=== PATIENT | female | born 1940 | race Caucasian/White ===

== ENCOUNTER 2019-10-11 10:50 | Inpatient (IN) ==
[2019-10-11 12:07] LABS: BASO# 0.03 X1000 (0.0-0.2); BASO% 0.4 % (0.0-0.8); HEMOGLOBIN 13.6 g/dL (12.0-16.0); IMM GRAN# 0.05 X1000 (0.0-0.04); IMM GRAN% 0.6 % (0.0-0.5); LYMPH# 1.05 X1000 (1.2-3.4); LYMPH% 13.2 % (20.5-51.1); MCH 30.9 PG (27-31); MCV 90.9 FL (81-99); MONO# 0.41 X1000 (0.11-0.59); MONO% 5.1 % (1.7-9.3); MPV 9.3 FL (7.4-10.4); NEUT# 6.44 X1000 (1.4-6.5); NEUT% 80.7 % (42.2-75.2); PLT 327 X1000 (130-400); RDW 12.9 % (11.5-14.5); WBC 7.98 X1000 (4.8-10.8)
[2019-10-11 12:09] LABS: ALLEN TEST NO; BE 4.3 mmoll (-3.0-3.0); BLOOD TYPE ARTERIAL; HCO3-(ACT) 28.1 mmoll (20.0-26.0); METHB 1.7 % (0.0-1.5); O2(CT) 17.4 mL/dL (15.0-23.0); O2HB 91.8 % (95.0-99.0); PCO2(98.6) 34 mmHg (35-45); PO2(98.6) 64 mmHg (60-100); SAMPLE BLOOD; SAO2 95.2 % (95.0-100.0); THB 13.5 g/dL (11.5-17.4); pH(98.6) 7.51 (7.35-7.45)
[2019-10-11 12:10] LABS: MODALITY ROOM AIR
[2019-10-11 12:31] LABS: AGAP 14; ALB/GLOB RATIO 1.5; ALBUMIN 4.1 g/dL (3.5-5.0); ALKALINE PHOSPHATASE 61 U/L (32-104); BUN 11 mg/dL (8-22); CALCIUM 9.2 mg/dL (8.8-10.2); CHLORIDE 90 mmol/L (98-107); COSMO 262; CREATININE 0.9 mg/dL (0.5-0.9); ESTIMATED GFR > 60; GLUCOSE 103 mg/dL (70-104); GOT 14 U/L (10-30); GPT 14 U/L (10-36); POTASSIUM 3.5 mmol/L (3.5-5.1); SODIUM 131 mmol/L (136-145); TCO2 27 mmol/L (25-35); TOTAL BILIRUBIN 0.56 mg/dL (0.20-1.00); TOTAL PROTEIN 6.9 g/dL (6.3-8.3)
[2019-10-11 13:00] LABS: BILIRUBIN URINE NEGATIVE (NEGATIVE); BLOOD URINE SMALL (NEGATIVE); COLOR YELLOW; GLUCOSE URINE NEGATIVE (NEGATIVE); KETONE URINE TRACE mg/dL (NEGATIVE); LEUKOCYTES URINE LARGE (NEGATIVE); NITRITE URINE POSITIVE (NEGATIVE); PH URINE 5.5; PROTEIN URINE NEGATIVE (NEGATIVE); SP GRAVITY URINE 1.013; TURBIDITY URINE HAZY (CLEAR); URINE SOURCE CATH; UROBILINOGEN URINE NORMAL (NORMAL)
[2019-10-11 13:02] LABS: UR EPITHELIAL CELLS <10 /HPF (<10); URINE BACTERIA 4+ /HPF; URINE RBC <10 /HPF (<10); URINE WBC TNTC /HPF (<10)
--- NOTE | 2019-10-11 13:07 | Diag Imaging Result Doc PS360 ---
CHEST-PORTABLE - 10/11/2019 INDICATION: WEAK COMPARISON: 12/24/2017 FINDINGS: Stable trace pulmonary fibrosis in the lung bases. No new infiltrates. Heart size and pulmonary vascularity is normal. No pneumothorax or pleural effusion. IMPRESSION: No change from prior. Electronically signed by Bello Suggs 10/11/2019 1:05 PM
[2019-10-11] MEDS ORDERED: ROCEPHIN 1 GM in NS 50 ML IV ONE (13:25)
--- NOTE | 2019-10-11 14:00 | EKG Report ---
Test Performed on : 10/11/2019 11:12:53 AM Test Reason : WEAK Blood Pressure : / mmHG Vent. Rate : 068 BPM Atrial Rate : 068 BPM P-R Int : 150 ms QRS Dur : 100 ms QT Int : 400 ms P-R-T Axes : 049 051 012 degrees QTc Int : 425 ms Normal sinus rhythm. Possible Left atrial enlargement Low voltage QRS Cannot rule out Anterior infarct , age undetermined Abnormal ECG When compared with ECG of 24-DEC-2017 09:04, Minimal criteria for Anterior infarct are now present Unconfirmed Result
--- NOTE | 2019-10-11 15:55 | PROVIDER DOCUMENTATION ---
This chart was entered by Krys Roberson Scribe, acting as scribe for Indio Carlson MD. HPI-General Adult - General Chief Complaint: Weakness Stated Complaint: ABDOMINAL PAIN/VOMITING Time Seen by Provider: 10/11/19 11:06 Source: patient Allergies/Adverse Reactions: Patient Allergies Allergy/AdvReac Type Severity Reaction Status Date / Time levofloxacin [From Levaquin] Allergy RASH Verified 12/24/17 09:38 lactose AdvReac DIARRHEA Verified 12/24/17 09:38 metoclopramide [From Reglan] AdvReac Unknown Verified 12/24/17 09:38 Home Medications: Home Medication List Medication Instructions Recorded Confirmed Last Taken Type Esomeprazole [Nexium] 40 mg PO DAILY 10/12/15 10/11/19 12/23/17 History Amlodipine [Norvasc] 2.5 mg PO DAILY 11/13/15 10/11/19 12/24/17 08:30 History Primidone 100 mg PO DAILY 11/12/17 10/11/19 12/23/17 History Carbidopa/Levodopa E.r [Sinemet Cr 1 tab PO HS 10/11/19 10/11/19 Unknown History ] Hydrochlorothiazide 25 mg PO QAM 10/11/19 10/11/19 Unknown History - History of Present Illness -Gen Adult Nature of Presenting Problems: pt is a 78 yowf c/o weakness, vomiting x1, dry cough, chills and episode of incontinence starting 1999 last night. pt is having trouble ambulating but usually does not needs assistance. pt on o2 in room, not usually on o2, but does use cpap at night. pt has hx of parkinsons, htn. no dm or cardiac hx. denies sob, body aches, fever. pt pcp is Dr. Montoya. Onset/Duration: reports: last night Timing: reports: still present Context/Activities at Onset: reports: none Modifying Factors: improves with: nothing Associated Symptoms: reports: cough (dry), fever/chills (chills, no fever), genitourinary problems (incontinence), vomiting (x1), weakness, trouble walking. denies: muscle aches, shortness of breath Review of Systems - Adult - REVIEW OF SYSTEMS - ADULT Constitutional: reports: see HPI, chills. denies: fever, fatique, night sweats Eyes: reports: no symptoms reported Ears, Nose, Mouth & Throat: reports: no symptoms reported Cardiovascular: reports: no symptoms reported Respiratory: reports: see HPI, cough. denies: dyspnea on exertion, excessive sputum production, hemoptysis, shortness of breath Gastrointestinal: reports: see HPI, vomiting. denies: abdominal pain, diarrhea, nausea Genitourinary: reports: see HPI, incontinence. denies: dysuria, discharge, frequency Musculoskeletal: reports: see HPI, muscle weakness. denies: back pain, joint pain, muscle aches Integumentary: reports: no symptoms reported Neurological: reports: no symptoms reported Psychiatric: reports: no symptoms reported Endocrine: reports: no symptoms reported Hematologic/Lymphatic: reports: no symptoms reported Allergic/Immunologic: reports: no symptoms reported All Other Systems: Reviewed and Negative Past History - Adult - PAST MEDICAL HISTORY-ADULT Review of Records: reports: Nursing Assessment Review, Medications Reviewed, Social history reviewed & non-contributory. Major Childhood Illnesses: reports: denies history Cardiovascular: reports: HTN Respiratory: reports: sleep apnea Gastrointestinal: reports: GERD Obstetrical/Gynecological: reports: denies history Genitourinary: reports: denies history Musculoskeletal: reports: chronic pain (back) Neurological: reports: denies history Endocrine/Immune: reports: denies history Other Conditions: reports: denies history - PRIOR SURGERIES/PROCEDURES Surgical/Procedure History: reports: cholecystectomy, hysterectomy, joint replacement (hip/knee), other - IMMUNIZATION STATUS Childhood Immunizations: See Nurse Assessment Flu Vaccine: See Nurse Assessment - FAMILY HISTORY Family History: reviewed, not pertinent - SOCIAL HISTORY Smoking: other (former smoker) Substance Use: alcohol Alcohol Use Frequency: every day (wine) Number of drinks per typical drinking period:: 2 drinks (2-3 glasses/day) Physical Exam-General - PHYSICAL EXAM-ADULT Initial Vital Signs Reviewed: Yes - CONSTITUTIONAL General Appearance: alert, no apparent distress, other (smells of urine in room) . negative: cachetic, lethargic, slow to respond - EYES Eyes: PERRL/EOMI - HEAD, EARS, NOSE, MOUTH & THROAT HENMT: normocephalic/atraumatic, moist mucous membranes - NECK Neck: non-tender, full range of motion, supple, normal inspection - RESPIRATORY Respiratory: chest non-tender, lungs clear, normal breath sounds - CARDIOVASCULAR Cardiovascular: normal peripheral pulses, regular rate, rhythm - GASTROINTESTINAL (ABDOMEN) Abdominal Exam: normal bowel sounds, non tender, soft. negative: rigid, rebound, tenderness - MUSCULOSKELETAL Back Exam: normal inspection Extremity: normal range of motion, non-tender, normal inspection - SKIN Integumentary: normal color, normal turgor, warm/dry - NEUROLOGIC Neurologic: waiter/waitress buffet II-XII nml as tested, grossly normal, no motor/sensory deficits - PSYCHIATRIC Psych/Mental Status: normal mood/affect, normal thought content, normal thought process, oriented x 3 Progress - PLAN OF CARE/RESULTS Progress/Plan/Lab Results: Vital Signs - 8 hr 10/11/19 10:59 Temperature 98.6 F Pulse Rate 71 Respiratory Rate 17 Blood Pressure 128/47 O2 Sat by Pulse Oximetry 97 Orders Category Date Time Status Cardiac Monitoring DIRECTED Care 10/11/19 11:06 Active Saline Loc NOW Care 10/11/19 11:06 Active CHEST-PORTABLE [RAD] Stat Exams 10/11/19 11:07 Ordered ABG [RESP] Routine Lab 10/11/19 11:06 Ordered BLOOD CULTURE [BLDCUL] Stat Lab 10/11/19 11:06 Ordered CBC WITH ELECTRONIC DIFF [HEME] Stat Lab 10/11/19 11:06 Uncollected COMPREHENSIVE METABOLIC PANEL [CHEM] Stat Lab 10/11/19 11:06 Ordered INFLUENZA SCREEN A/B Stat Lab 10/11/19 11:06 Uncollected LACTATE, PLASMA [CHEM] Stat Lab 10/11/19 11:07 Uncollected MAGNESIUM [CHEM] Stat Lab 10/11/19 11:07 Ordered PRO B-NATRIURETIC PEPTIDE Stat Lab 10/11/19 11:07 Uncollected TROPONIN T HIGH SENSITIVITY Stat Lab 10/11/19 11:07 Uncollected URINALYSIS W/POSS RFLX CULT [URINALYSIS] Stat Lab 10/11/19 11:07 Uncollected EKG [EKG] Stat Ther 10/11/19 11:06 Ordered Result Diagrams: 10/11/19 11:48 10/11/19 11:48 - EKG 1 Time of EKG reading by physician:: 11:14 EKG Read and Signed by:: Indio Carlson EKG Interpretation (*Must complete 3 of following elements*): Abnormal Rate: 68 (possible left atrial enlargement ) Rhythm: NSR [place]: normal QRS: other (low voltage qrs) [place] Interval: normal ST Wave: normal Comments: cannot rule out anterior infarct, age undetermined - XRAY 1 XRAY Study: Chest Impression: See EMR Report (CHEST-PORTABLE - 10/11/2019 INDICATION: WEAK COMPARISON: 12/24/2017 FINDINGS: Stable trace pulmonary fibrosis in the lung bases. No new infiltrates. Heart size and pulmonary vascularity is normal. No pneumothorax or pleural effusion. IMPRESSION: No change from prior. Electronically signed by Bello Suggs 10/11/2019 1:05 PM) Comparison with other Films: no changes - CONSULTS/PCP/HOSPITALIST Notification #1 *Consult/PCP/Hospitalist*: Gita Time Discussed: 15:25 Consult Disposition: Admit Departure - Departure Date of Disposition Decision: 10/11/19 Time of Disposition Decision: 15:52 DIAGNOSIS: Hyponatremia, Weakness, Gait disturbance UTI (urinary tract infection) Qualifiers: Urinary tract infection type: acute cystitis Hematuria presence: without hematuria Qualified Code(s): N30.00 - Acute cystitis without hematuria Disposition: ADMITTED INPATIENT 09 Certified Medical Emergency: Emergent Condition: Stable Referrals and Follow-Ups: Alice Montoya MD [Primary Care Provider] - - Critical Care Note This patient required my direct & personal management of CC.: No Attestation - Physician/ MARIS Attestation Patient care was provided by Advanced Practice Provider:: No The physician spent face to face time with patient:: Yes Advanced Practice Provider documentation review:: Supervising physician onsite and consulted in the evaluation and care of this patient. The physician did have a face to face encounter with the patient. This chart was documented by the indicated scribe, (Krys Roberson Scribe) and accurately reflects the services I performed and decisions made by me, Indio Carlson MD, as attested by the provider's signature.
[2019-10-11] MEDS ORDERED: NS 1,000 ML IV SCH (16:00)
[2019-10-11] MEDS: TYLENOL PO PRN (19:10)
--- NOTE | 2019-10-11 21:50 | HISTORY AND PHYSICAL ---
PRIMARY CARE PHYSICIAN: Dr. Montoya. CHIEF COMPLAINT: Nausea, vomiting, and weakness since last night. HISTORY OF PRESENT ILLNESS: Ms. Novak is a 78-year-old female with a history of Parkinson disease, GERD and hypertension who was brought to the ER by her after the patient was noted to be very weak and lethargic. He reports that she started feeling nauseated and vomiting last night. He denies any fever. He reports that this morning when she woke up, she was very weak and sleepy and would not eat. Upon arrival to the ER, the patient was noted to have a blood pressure of 128/47 with a heart rate of 71 and a temperature of 98.6. A urinalysis was performed that was positive for infection. Also, the patient was noted to be dehydrated. The patient's reports that the patient normally ambulates without any difficulty; however, today she was unable to get up and walk on her own due to severe weakness. PAST MEDICAL HISTORY: 1. Parkinson disease. 2. GERD. 3. Hypertension. PAST SURGICAL HISTORY: 1. Cholecystectomy 2. Hysterectomy. 3. Bilateral knee arthroplasty. 4. Left hip arthroplasty. SOCIAL HISTORY: The patient is an ex-smoker. The patient occasionally drinks alcoholic beverages. The patient is and lives at home with her . ALLERGIES: 1. Levaquin. 2. Lactose intolerance. 3. Reglan. FAMILY HISTORY: Reviewed and noncontributory. HOME MEDICATIONS: 1. Norvasc 2.5 mg oral daily. 2. Sinemet 1 tab oral at bedtime. 3. Nexium 40 mg p.o. daily. 4. Hydrochlorothiazide 25 mg orally every morning. 5. Primidone 100 mg p.o. daily. REVIEW OF SYSTEMS: A 12-point review of systems has been performed. Please refer to the history of present illness for pertinent positives and negatives. PHYSICAL EXAMINATION: VITAL SIGNS: Temperature 98.6, blood pressure 128/47, heart rate 71, respirations 17, O2 saturation 97% on room air. GENERAL: This is a chronically ill-appearing female lying on the stretcher in no acute distress. SKIN: Poor skin turgor. No rashes, no lesions. HEENT: Normocephalic, atraumatic. PERRLA, EOMI. Oral mucosa is dry. Trachea is midline. NECK: Supple. No JVD. No lymphadenopathy. HEART: S1, S2 normal. Regular rate and rhythm. LUNGS: Clear to auscultation bilaterally. No wheezing. No rales. No rhonchi. ABDOMEN: Positive bowel sounds. Soft, nontender, nondistended. EXTREMITIES: No edema. No cyanosis. No calf tenderness. NEUROLOGIC: The patient is awake but lethargic. She is able to move all 4 extremities. The patient's gait was not checked. LABS: White blood cell count 7.9, hemoglobin 13, hematocrit 40, platelets 327. ABG: PH of 7.5, pCO2 of 34, pO2 of 64, bicarb of 28. Sodium 131, potassium 3.5, chloride 90. CO2 is 27, BUN 11, creatinine 0.9 glucose 103, calcium 9.2, magnesium 1.9. AST 14, ALT 14, alkaline phosphatase 61, albumin 4.1. UA: 4+ bacteria, positive nitrates, large leukocytes, kgh-[id number]-yh-count WBCs. ASSESSMENT AND PLAN: 1. Metabolic encephalopathy secondary to urinary tract infection. We will start the patient on IV fluids and antibiotics. 2. Sepsis secondary to a UTI. Blood and urine cultures have been obtained. Will start IV fluids and antibiotic therapy. 3. Urinary tract infection. Blood cultures have been obtained as well as a urine culture. We will start the patient on antibiotic therapy. 4. Dehydration. We will start the patient on IV fluids and monitor her response. 5. Parkinson disease. Continue on Sinemet. 6. Gastroesophageal reflux disease. Will start the patient on Prilosec. 7. Hypertension. Stable. Will start the patient back on home medication. 8. Deep vein thrombosis prophylaxis. Will start the patient on Lovenox. cc: Roxy Benito MD [facility]
[2019-10-11] MEDS: SINEMET CR 25/100 PO SCH (22:00)
[2019-10-11] MEDS: NS 1,000 ML IV SCH (22:46)
[2019-10-12] MEDS: MAXIPIME 1 GM in NS 50 ML IV SCH ×2 (04:42→16:08)
[2019-10-12] MEDS: NS 1,000 ML IV SCH ×2 (04:42→18:06)
[2019-10-12] MEDS: TYLENOL PO PRN ×2 (04:42→16:08)
[2019-10-12 06:54] LABS: HEMATOCRIT 34.3 % (37.0-47.0); HEMOGLOBIN 11.6 g/dL (12.0-16.0); MCH 30.8 PG (27-31); MCHC 33.8 g/dL (33-37); MPV 9.2 FL (7.4-10.4); RBC 3.77 XMIL (4.2-5.4); RDW 12.9 % (11.5-14.5); WBC 6.15 X1000 (4.8-10.8)
[2019-10-12 07:15] LABS: AGAP 13; BUN 13 mg/dL (8-22); CALCIUM 8.5 mg/dL (8.8-10.2); CHLORIDE 94 mmol/L (98-107); COSMO 265; CREATININE 0.7 mg/dL (0.5-0.9); ESTIMATED GFR > 60; GLUCOSE 97 mg/dL (70-104); POTASSIUM 3.4 mmol/L (3.5-5.1); SODIUM 132 mmol/L (136-145); TCO2 25 mmol/L (25-35)
[2019-10-12] MEDS ORDERED: MAXIPIME 1 GM in NS 50 ML IV SCH (08:00)
[2019-10-12] MEDS: NORVASC PO SCH ×3 (08:51→10:48)
[2019-10-12] MEDS: LOVENOX SUBQ SCH (08:52)
[2019-10-12] MEDS: VITAMIN D PO SCH ×2 (08:54→08:59)
[2019-10-12] MEDS ORDERED: BLISTEX MEDICATED BERRY LIP BALM TOP PRN (11:57)
[2019-10-12] MEDS: SINEMET 25/100 PO SCH ×2 (13:08→17:35)
[2019-10-12] MEDS ORDERED: ROCEPHIN 1 GM in NS 50 ML IV SCH (14:00)
[2019-10-12] MEDS ORDERED: KLOR-CON PO ONE (19:22)
[2019-10-12] MEDS ORDERED: NS 1,000 ML IV SCH (19:22)
[2019-10-12] MEDS: SINEMET CR 25/100 PO SCH (20:14)
--- NOTE | 2019-10-13 04:50 | PROGRESS NOTE ---
DATE: 10/12/2019 SUBJECTIVE: The patient is resting comfortably in bed. She states that she feels much better today. She did have a fever of 102 early this morning. OBJECTIVE: Vital Signs: Temperature T-max 102 degrees, blood pressure 158/61, heart rate 65, respirations 16, O2 saturation 96% on room air. General: This is an elderly female lying in bed in no acute distress. Heart: S1, S2 normal. Regular rate and rhythm. Lungs: Clear to auscultation bilaterally. Abdomen: Positive bowel sounds. Soft, nontender, nondistended. Extremities: No edema no cyanosis. Neurologic: The patient is alert and oriented x3. LABS: White blood cell count 6.1, hemoglobin 11, hematocrit 34, platelets 276,000, sodium 132, potassium 3.4, chloride 94, CO2 25, BUN 13, creatinine 0.7, glucose 97, calcium 8.5. Urine culture is growing gram-negative rods. One bottle of the blood culture is growing gram-negative rods. ASSESSMENT AND PLAN: 1. Sepsis secondary to gram negative bacteremia. One of the blood cultures is growing gram-negative rods. Continue on cefepime. 2. Urinary tract infection. The urine culture is growing gram-negative rods. Continue on antibiotic therapy. Will await the final culture results. 3. Metabolic encephalopathy. Resolved. 4. Parkinson disease. Continue on Sinemet. 5. Hypertension. Continue on Norvasc. 6. Vitamin D deficiency. The patient has been started on vitamin D replacement. 7. Dehydration. Improved. 8. Deep vein thrombosis prophylaxis. Continue on Lovenox. 8. Physical therapy has been consulted. cc: MD ES Cerrato
[2019-10-13] MEDS: MAXIPIME 1 GM in NS 50 ML IV SCH ×2 (05:21→17:32)
[2019-10-13 06:50] LABS: HEMATOCRIT 33.8 % (37.0-47.0); MCH 29.9 PG (27-31); MCHC 32.5 g/dL (33-37); MCV 91.8 FL (81-99); MPV 9.2 FL (7.4-10.4); RBC 3.68 XMIL (4.2-5.4); RDW 12.9 % (11.5-14.5); WBC 4.17 X1000 (4.8-10.8)
[2019-10-13 07:27] LABS: AGAP 10; BUN 10 mg/dL (8-22); CALCIUM 8.6 mg/dL (8.8-10.2); CHLORIDE 99 mmol/L (98-107); COSMO 266; CREATININE 0.7 mg/dL (0.5-0.9); ESTIMATED GFR > 60; GLUCOSE 105 mg/dL (70-104); POTASSIUM 3.8 mmol/L (3.5-5.1); SODIUM 133 mmol/L (136-145); TCO2 24 mmol/L (25-35)
[2019-10-13] MEDS: LOVENOX SUBQ SCH (10:01)
[2019-10-13] MEDS: CULTURELLE PO SCH (10:01)
[2019-10-13] MEDS: SINEMET 25/100 PO SCH ×3 (10:02→17:33)
[2019-10-13] MEDS: NORVASC PO SCH (10:12)
[2019-10-13] MEDS: SINEMET CR 25/100 PO SCH (20:51)
--- NOTE | 2019-10-14 04:03 | PROGRESS NOTE ---
DATE: 10/13/2019 SUBJECTIVE: The patient is sitting at bedside on the bedside commode. She states she feels much better today. She was afebrile overnight. She is eating well and ambulated with physical therapy. OBJECTIVE: Vital Signs: Temperature 98.3 degrees, blood pressure 139/64, heart rate 57, respirations 18, O2 saturation 97% on room air. General: This is a chronically ill-appearing elderly female sitting up in no acute distress. Heart: S1, S2 normal. Lungs: Clear to auscultation bilaterally. Abdomen: Positive bowel sounds. Soft, nontender, nondistended. Extremities: No edema, no cyanosis. Neuro: The patient is alert and oriented x4. LABS: White blood cell count 4, hemoglobin 11, hematocrit 33, platelets 249,000, sodium 133, potassium 3.8, chloride 99, CO2 24, BUN 10, creatinine 0.7, glucose 105, calcium 8.6. ASSESSMENT AND PLAN: 1. Sepsis secondary to Escherichia coli bacteremia as a result of urinary tract infection secondary to Escherichia coli. Continue with antibiotic therapy. 2. Urinary tract infection secondary to Escherichia coli. Continue with antibiotic therapy. The patient is improved. 3. Dehydration. Resolved. 4. Parkinson disease. Continue on Sinemet. 5. Hypertension. Controlled. Continue on Norvasc. 6. Vitamin D deficiency. Continue vitamin D replacement. 7. Deep vein thrombosis prophylaxis. Continue Lovenox. 8. Disposition. The patient has been working with physical therapy. cc: Roxy Benito MD [facility]
[2019-10-14] MEDS: MAXIPIME 1 GM in NS 50 ML IV SCH ×2 (05:03→15:59)
[2019-10-14 06:59] LABS: HEMATOCRIT 34.6 % (37.0-47.0); HEMOGLOBIN 11.3 g/dL (12.0-16.0); MCH 30.1 PG (27-31); MCHC 32.7 g/dL (33-37); MPV 9.8 FL (7.4-10.4); RBC 3.76 XMIL (4.2-5.4); RDW 12.8 % (11.5-14.5); WBC 4.6 X1000 (4.8-10.8)
[2019-10-14 07:37] LABS: AGAP 10; BUN 9 mg/dL (8-22); CALCIUM 8.6 mg/dL (8.8-10.2); CHLORIDE 100 mmol/L (98-107); COSMO 271; CREATININE 0.6 mg/dL (0.5-0.9); ESTIMATED GFR > 60; GLUCOSE 105 mg/dL (70-104); POTASSIUM 3.7 mmol/L (3.5-5.1); SODIUM 136 mmol/L (136-145); TCO2 26 mmol/L (25-35)
[2019-10-14] MEDS: NORVASC PO SCH (08:43)
[2019-10-14] MEDS: LOVENOX SUBQ SCH (08:43)
[2019-10-14] MEDS: SINEMET 25/100 PO SCH ×3 (08:43→16:56)
[2019-10-14] MEDS: CULTURELLE PO SCH (08:43)
[2019-10-14] MEDS ORDERED: HYDROCORTISONE 1% CREAM TOP PRN (17:43)
[2019-10-14] MEDS ORDERED: ROCEPHIN 2 GM in NS 50 ML IV SCH (18:00)
--- NOTE | 2019-10-14 18:34 | PROGRESS NOTE ---
DATE: 10/14/2019 INTERVAL HISTORY: No acute events overnight. Ms. Novak is feeling significantly better. She states she was able to walk in the hallway. Her is at bedside. She denies any chest pain, shortness of breath. She denies any nausea, vomiting, or abdominal pain. VITALS: Temperature of 98.3 degrees, pulse 57, respiratory rate 16, blood pressure 134/55 saturating 98% on room air. PHYSICAL EXAMINATION: Oral cavity is moist.Lungs: Air entry bilaterally equal. No wheeze, rhonchi, or crackles except mild crackles in infrascapular region and I advised her to use incentive spirometry. Air entry bilaterally. Cardiovascular: S1, S2 normal, no murmur or gallop. ABDOMEN: Soft nontender. Extremities: She has bilateral lower extremity edema which is chronic. Skin: She has papular rash all over her back which is mildly itchy. No costovertebral angle tenderness. LABS: WBC of 4.6, hemoglobin 11.3, platelets 270,000. She does have a normal electrolytes. Microbiology: One of the 2 blood cultures was growing Escherichia coli. Urine culture is growing Escherichia coli. Repeat blood cultures have been ordered. She denies known history of nephrolithiasis. She does not have any costovertebral angle tenderness. ASSESSMENT AND PLAN: 1. Sepsis due to acute cystitis without hematuria due to Escherichia coli. Her antibiotics were changed to intravenous ceftriaxone. However, the patient is willing to consider Levaquin. I will follow up with repeat blood culture and start the patient on Levaquin, which is sensitive against E coli. She states she had minor rash like reaction probably to Levaquin about 15 years ago. She denies any anaphylactic reaction. I had a long discussion with her about need for at least 2 weeks of IV antibiotics versus oral Levaquin and considering that she is willing to try Levaquin, I will start her with premedication with famotidine and diphenhydramine. 2. Clinical volume depletion, now improved. She is tolerating oral diet well. 3. Others. Continue levodopa, carbidopa for Parkinson disease; amlodipine for essential hypertension; enoxaparin for DVT prophylaxis; vitamin D for vitamin D deficiency, though her vitamin D appears to be close to normal and I will stop it. DISPOSITION: Awaiting negative blood cultures and based on that, she would likely go home. Plan of care discussed with the patient and her . Their questions have been satisfactorily answered. cc: Bhavik Boyer MD [facility]TD[facility]
[2019-10-14] MEDS: SINEMET CR 25/100 PO SCH (21:22)
[2019-10-15] MEDS: PEPCID PO SCH (06:38)
[2019-10-15] MEDS: SINEMET 25/100 PO SCH ×3 (09:15→17:09)
[2019-10-15] MEDS: LOVENOX SUBQ SCH (09:15)
[2019-10-15] MEDS: NORVASC PO SCH (09:15)
[2019-10-15] MEDS: CULTURELLE PO SCH (09:15)
[2019-10-15] MEDS: BENADRYL PO PRN (09:17)
[2019-10-15] MEDS: LEVAQUIN PO SCH (10:16)
--- NOTE | 2019-10-15 14:31 | PROGRESS NOTE ---
DATE: 10/15/2019 INTERVAL HISTORY: She tolerated oral Levaquin well. Her rash on the back is significantly improving. OBJECTIVE: Vital Signs: Temperature of 97.9 degrees, pulse 70, respiratory rate 18, blood pressure 148/70, saturating 95% room air. General: Not in acute distress. HEENT: Oral cavity is moist. Lungs: Air entry bilaterally equal. No wheezing or crackles. Heart: S1, S2 normal. No murmurs or gallops. Abdomen: Soft, nontender. Extremities: No lower extremity edema. Neurologic: She is alert and oriented x3. Skin: She has improving papular rash over her back. No costovertebral angle tenderness. LABORATORY DATA: WBC of 4.6, hemoglobin 11.3, platelets 270,000, though there are no new labs today. Repeat blood cultures are in lab. ASSESSMENT AND PLAN: 1. Sepsis due to acute cystitis. Rule out hematuria due to Escherichia coli. Continue oral Levaquin. Follow up final blood culture results. I will premedicate levofloxacin with famotidine and Benadryl considering her prior history of rash to Levaquin. Currently, she is tolerating it well. 2. Clinical volume depletion has improved. Continue levodopa/carbidopa for Parkinson's disease; amlodipine for essential hypertension; Lovenox for deep venous thrombosis prophylaxis; the vitamin D supplementation for vitamin D deficiency was stopped because her vitamin D levels were normal. 3. Disposition. Awaiting final blood culture data, and based on it, potential discharge in 24 hours. cc: Bhavik Boyer MD
[2019-10-15] MEDS ORDERED: MYLICON PO PRN (17:13)
[2019-10-15] MEDS: SINEMET CR 25/100 PO SCH (21:26)
[2019-10-15] MEDS: ZOFRAN IV PRN (22:37)
[2019-10-16] MEDS: PEPCID PO SCH (06:30)
[2019-10-16] MEDS: ZOFRAN IV PRN (06:31)
[2019-10-16] MEDS: BENADRYL PO PRN (08:01)
[2019-10-16] MEDS: LEVAQUIN PO SCH (09:06)
[2019-10-16] MEDS: NORVASC PO SCH (09:06)
[2019-10-16] MEDS: CULTURELLE PO SCH (09:06)
[2019-10-16] MEDS: LOVENOX SUBQ SCH (09:07)
[2019-10-16] MEDS: SINEMET 25/100 PO SCH (09:07)
[2019-10-16 09:25] LABS: AGAP 10; BUN 8 mg/dL (8-22); CALCIUM 8.8 mg/dL (8.8-10.2); CHLORIDE 96 mmol/L (98-107); COSMO 269; CREATININE 0.8 mg/dL (0.5-0.9); ESTIMATED GFR > 60; GLUCOSE 134 mg/dL (70-104); POTASSIUM 3.5 mmol/L (3.5-5.1); SODIUM 134 mmol/L (136-145); TCO2 28 mmol/L (25-35)
[2019-10-16 09:35] LABS: BASO# 0.11 X1000 (0.0-0.2); BASO% 2.4 % (0.0-0.8); EOS% 2.2 % (0.0-10.0); HEMATOCRIT 34.8 % (37.0-47.0); HEMOGLOBIN 11.4 g/dL (12.0-16.0); LYMPH# 1.46 X1000 (1.2-3.4); LYMPH% 31.4 % (20.5-51.1); MCH 30.3 PG (27-31); MCHC 32.8 g/dL (33-37); MCV 92.6 FL (81-99); MONO# 0.88 X1000 (0.11-0.59); MONO% 18.9 % (1.7-9.3); MPV 9.8 FL (7.4-10.4); NEUT% 45.1 % (42.2-75.2); PLT 325 X1000 (130-400); RBC 3.76 XMIL (4.2-5.4); RDW 12.9 % (11.5-14.5); WBC 4.65 X1000 (4.8-10.8)
[2019-10-16 11:39] VITALS: BP 114/57
--- NOTE | 2019-10-16 12:48 | DISCHARGE SUMMARY ---
ADMISSION DATE: 10/11/2019 DISCHARGE DATE: 10/16/2019 DISCHARGE DISPOSITION: Home. DISCHARGE CONDITION: Hemodynamically stable. Her urine culture has shown no growth. She will be discharged on oral Levaquin. She was provided detailed discharge instructions about following up with regular physician. DISCHARGE DIAGNOSES: 1. Sepsis due to acute cystitis without hematuria. 2. Acute urinary tract infection due to Escherichia coli. 3. Clinical volume depletion. 4. Normocytic anemia. 5. Hypokalemia. 6. Acute encephalopathy, likely due to sepsis and urinary tract infection. OTHER DIAGNOSES: 1. History of essential hypertension. 2. History of chronic gastroesophageal reflux disease. 3. History of Parkinson's disease. 4. Previous history of hysterectomy. DISCHARGE MEDICATIONS: 1. Hydrochlorothiazide 25 mg in the morning time. 2. Nexium 40 mg daily. 3. Amlodipine 2.5 mg daily. 4. Primidone 100 mg daily. 5. Sinemet 2500 one tablet 4 times a day. 6. Sinemet extended release 2500 one tablet at nighttime. 7. Benadryl 25 mg daily as needed for itching. 8. Hydrocortisone 1% cream 1 application 4 times a day as needed for itching. 9. Levofloxacin 500 mg daily, 12 tablets. PHYSICAL EXAMINATION: Vital Signs: At the time of discharge, temperature 97.5 degrees, pulse 57, respiratory rate 17, blood pressure 139/61, saturating 98% room air. General: On physical examination at the time of discharge, Ms. Novak was not in acute distress. No pallor, cyanosis, clubbing or icterus. Lungs: Air entry bilaterally equal. No wheeze, rhonchi, crackles. Cardiac: S1 and S2 normal. No murmur, gallop, rub. Abdomen: Soft, nontender. Extremities: No lower extremity edema. Neurologic: She was alert and oriented x3. LABORATORY DATA AT THE TIME OF HER DISCHARGE: WBC 4.6, hemoglobin 11.4, platelet 325,000. Sodium 134, chloride 96, BUN 8, creatinine 0.8, blood glucose 134. SIGNIFICANT MICROBIOLOGY DURING HOSPITAL ADMISSION: One of the two blood cultures on 10/11/2019 grew Escherichia coli, which was sensitive to levofloxacin. Urine culture on 10/11/2019 also grew Escherichia coli which was sensitive to levofloxacin. SIGNIFICANT IMAGING DURING HOSPITAL ADMISSION: 1. Chest x-ray did not have any acute cardiopulmonary process. 2. Electrocardiogram on 10/11/2019 had normal sinus rhythm, possible left atrial enlargement, low voltage QRS. Cannot rule out anterior infarct, age undetermined. HOSPITAL COURSE SUMMARY: Ms. Novak is a 79-year-old lady who presented on 10/11/2019 with chief complaints of nausea, vomiting, weakness of about 24 hours' duration. Her brought her because the patient was also feeling extremely weak and lethargic, and she was sleepy and slightly confused. In the emergency room, she was found to have temperature of 98.6, pulse of 71, blood pressure of 128/47, and she was saturating 97%. Her urinalysis had pyuria and her lactate was 0.8. She was diagnosed with acute metabolic encephalopathy due to urinary tract infection. She was started on IV fluids and IV antibiotics and was admitted for further management. With IV fluids and IV antibiotics, the patient's clinical condition improved. Urine culture and one of the two blood cultures grew Escherichia coli. The second blood culture was negative. The Escherichia coli was sensitive to Levaquin. Initially, she was on intravenous cefepime, which was changed to Levaquin, though patient had listed as allergy to Levaquin with minor rash. She was given oral Benadryl and she did not develop any rash. Previously, she did have minor rash due to use of cefepime, though it was not significant to cause any bronchoconstriction or choking, and it was symptomatically managed with hydrocortisone cream. The patient tolerated oral Levaquin well with the use of famotidine and Benadryl as needed, and she did not develop any complications. It was decided to discharge her on oral Levaquin to complete a total of 4 weeks of course of antibiotics for bacteremia. TIME SPENT: More than 30 minutes of time was spent discharging this patient. I sat down with the patient. I explained to her about risk factors for urinary tract infection including urinary retention, improper hygienic practices, urinary incontinence, prior history of urinary tract infection, nephrolithiasis. I explained to her about wiping front to back after having a bowel movement. I explained to her about scheduling an [employer] visit, and I answered all of her questions satisfactorily. cc: MD ES Harding
--- NOTE | 2019-10-23 23:30 | DISCHARGE SUMMARY ---
ADMISSION DATE: 10/11/2019 DISCHARGE DATE: 10/16/2019 ADDENDUM: She was discharged on levofloxacin 500 mg daily and she had to complete 12 additional days of course to complete a total of 2 weeks of antibiotics for her E coli bacteremia. Please make a note that, in the previous discharge summary by mistake it was dictated as 4 weeks of total course. However, she needs to complete a total of 2 weeks of antibiotic course. I had this discussion and I informed the patient's primary care doctor about this. cc: Bhavik Boyer MD
== END 2019-10-16 12:16 | disposition home or self-care (01) | DRG 871 ==
LOC: SUPCPDRO → ED 10:50 → 4N 18:24 → SUATTDRO 18:24
PROVIDERS: ATTEND Internal Medicine